=== PATIENT | male | born 1945 | race American Indian/Alaskan Native ===

== ENCOUNTER 2017-04-13 09:38 | Outpatient (CLI) | payer MEDICARE ==
--- NOTE | 2017-04-13 12:37 | Magnetic Resonance Report ---
MRI scan of brain: History: TIA. Technique: Multiplanar, multisequence images were obtained without contrast injection. Findings: No evidence of restricted diffusion. Ventricles are normal in size and midline in location. No evidence of acute ischemia hemorrhage or mass. Mild volume loss. No extra-axial fluid collection. Normal brainstem and cerebellum. Normal sinuses. Impression: No acute intracranial abnormality. Mild to moderate volume loss.
--- NOTE | 2017-04-13 12:43 | Magnetic Resonance Report ---
MRI scan of cervical spine: History: TIA. Technique: Multiplanar, multisequence images were obtained without contrast injection. Findings: The cervical medullary junction the cerebellar tonsils appears normal. Normal cervical lordosis. Normal pre-and paravertebral soft tissue. Normal height and signal intensity of vertebral bodies. Decrease in height and signal intensity of C4-C5, C5-C6 and C6-C7 with evidence of cervical spondylosis. C1-C2. Normal. C2-C3. Normal. C3-C4. Bilateral moderate neural foraminal narrowing secondary to disc osteophyte complex and uncovertebral joint hypertrophy. Mild facet joint hypertrophy. Mild central canal spinal stenosis. C4-C5. Moderate bilateral neural foramina narrowing secondary to disc osteophyte complex and uncovertebral joint hypertrophy and facet joint hypertrophy. No central canal spinal stenosis. C5-C6. Moderate bilateral neural foramina narrowing secondary to disc osteophyte complex and uncovertebral joint hypertrophy and facet joint hypertrophy. Mild central canal spinal stenosis. C6-C7. Moderate bilateral neural foramina narrowing secondary to disc osteophyte complex and uncovertebral joint hypertrophy and facet joint hypertrophy. No central canal spinal stenosis. No evidence of spinal cord edema or hemorrhage. Impression: Multilevel bilateral neural foraminal narrowing and central canal spinal stenosis as detailed above. No evidence of cord edema or hemorrhage.
--- NOTE | 2017-04-17 08:59 | Vascular Lab Report ---
CAROTID DUPLEX STUDY: RIGHT PSVEDV CCA PROX:103 8 CCA DIST:[id number] ICA PROX:[id number] ICA MID: 5113 ICA DIST: 5312 ECA: 122 VERT: 63 8 LEFT PSVEDV CCA PROX:[id number] CCA DIST: 9516 ICA PROX:76693 ICA MID: 7321 ICA DIST: 6918 ECA: 103 VERT: 54 15 REASON FOR EXAM: TIA. COMMENTS ON THE RIGHT: Doppler frequency analysis is consistent with 16 to 49 percent diameter reduction of the internal carotid artery. Minimal amount of plaque is seen. The common carotid artery is patent. The external carotid artery is patent. The vertebral artery has antegrade flow. COMMENTS ON THE LEFT: Doppler frequency analysis is consistent with 16 to 49 percent diameter reduction of the internal carotid artery. Minimal amount of plaque is seen. The common carotid artery is patent. The external carotid artery is patent. The vertebral artery has antegrade flow. IMPRESSION: Less than 50% diameter reduction in the internal carotid arteries bilaterally. Consider repeat carotid artery duplex in 12 months.
== END 2017-04-13 09:39 | disposition home or self-care (01) ==
LOC: VAS 09:38
PROVIDERS: ATTEND Specialist
DX: M48.02 Spinal stenosis, cervical region (principal); M47.892 Other spondylosis, cervical region; M40.292 Other kyphosis, cervical region; G45.9 Transient cerebral ischemic attack, unspecified; I10 Essential (primary) hypertension; E11.9 Type 2 diabetes mellitus without complications
CPT/HCPCS: 70551; 72141; 93880

== ENCOUNTER 2018-03-29 09:39 | Outpatient (CLI) | payer MEDICARE ==
[2018-03-29] MEDS ORDERED: XYLOCAINE TOPICAL 4% TP ONE ×2 (09:59→11:44)
== END 2018-03-29 09:40 | disposition home or self-care (01) ==
LOC: WOUND 09:39
PROVIDERS: ATTEND Surgery
DX: S91.102A Unspecified open wound of left great toe without damage to nail, initial encounter (principal); M10.9 Gout, unspecified; I10 Essential (primary) hypertension; E11.9 Type 2 diabetes mellitus without complications; I25.10 Atherosclerotic heart disease of native coronary artery without angina pectoris; E78.5 Hyperlipidemia, unspecified; Z86.73 Personal history of transient ischemic attack (TIA), and cerebral infarction without residual deficits; Z87.891 Personal history of nicotine dependence; W51.XXXA Accidental striking against or bumped into by another person, initial encounter; Y93.89 Activity, other specified; Y92.89 Other specified places as the place of occurrence of the external cause; Y99.8 Other external cause status
CPT/HCPCS: 11042; G0463

== ENCOUNTER 2018-04-05 07:55 | Outpatient (CLI) | payer MEDICARE ==
[2018-04-05] MEDS ORDERED: XYLOCAINE TOPICAL 4% TP ONE (08:06)
== END 2018-04-05 07:56 | disposition home or self-care (01) ==
LOC: WOUND 07:55
PROVIDERS: ATTEND Surgery
DX: S91.102D Unspecified open wound of left great toe without damage to nail, subsequent encounter (principal); M10.9 Gout, unspecified; I10 Essential (primary) hypertension; E11.9 Type 2 diabetes mellitus without complications; I25.10 Atherosclerotic heart disease of native coronary artery without angina pectoris; E78.5 Hyperlipidemia, unspecified; Z86.73 Personal history of transient ischemic attack (TIA), and cerebral infarction without residual deficits; Z87.891 Personal history of nicotine dependence; X58.XXXD Exposure to other specified factors, subsequent encounter

== ENCOUNTER 2018-04-12 08:05 | Outpatient (CLI) | payer MEDICARE ==
[2018-04-12] MEDS ORDERED: XYLOCAINE TOPICAL 4% TP ONE (08:21)
== END 2018-04-12 08:06 | disposition home or self-care (01) ==
LOC: WOUND 08:05
PROVIDERS: ATTEND Surgery
DX: S91.102D Unspecified open wound of left great toe without damage to nail, subsequent encounter (principal); M10.9 Gout, unspecified; I10 Essential (primary) hypertension; E11.9 Type 2 diabetes mellitus without complications; I25.10 Atherosclerotic heart disease of native coronary artery without angina pectoris; E78.5 Hyperlipidemia, unspecified; Z86.73 Personal history of transient ischemic attack (TIA), and cerebral infarction without residual deficits; Z87.891 Personal history of nicotine dependence; X58.XXXD Exposure to other specified factors, subsequent encounter
CPT/HCPCS: 11042; G0463; 99213